=== PATIENT | female | born 1985 | race Hispanic/Latino ===

== ENCOUNTER 2018-08-11 18:15 | Emergency (ER) | payer OTHER ==
[~2018-08-11] VITALS: Ht 160 cm; Wt 73.0 kg
[2018-08-11] MEDS ORDERED: AMOXICILLIN500 MG PO (18:41)
[2018-08-11 18:50] VITALS: BP 134/66
== END 2018-08-11 18:58 | disposition home or self-care (01) | DRG 153 ==
LOC: ED 18:15
DX: H66.93 Otitis media, unspecified, bilateral (principal); J02.9 Acute pharyngitis, unspecified

== ENCOUNTER 2019-03-09 12:13 | Emergency (ER) | payer BC ==
[~2019-03-09] VITALS: Ht 160 cm; Wt 72.7 kg
[~2019-03-09 12:13] MED LIST: AMOXICILLIN500 MG PO
[2019-03-09 13:14] LABS: URINE BILIRUBIN - DIPSTICK NEGATIVE (NEGATIVE); URINE BLOOD DIPSTICK LARGE (NEGATIVE); URINE COLOR YELLOW; URINE GLUCOSE - DIPSTICK NEGATIVE (NEGATIVE); URINE KETONE NEGATIVE (NEGATIVE); URINE NITRITE - DIPSTICK NEGATIVE (Negative); URINE PROTEIN - DIPSTICK 30 mg/dL (NEG-TRACE); URINE SPECIFIC GRAVITY 1.025; URINE UROBILINOGEN - DIPSTICK 0.2 E.U./dL (0.2)
[2019-03-09 13:18] LABS: URINE LEUK ESTERASE MODERATE (NEGATIVE)
[2019-03-09 13:20] LABS: URINE BACTERIA FEW hpf; URINE RBC TNTC RBC/hpf (0-5); URINE SQUAMOUS EPITHELIAL CELL FEW EPI/hpf (0-FEW)
[2019-03-09] MEDS ORDERED: KEFLEX500 M1 PO (14:00)
[2019-03-09] MEDS ORDERED: PYRIDIUM200 MG PO (14:00)
[2019-03-09 14:14] VITALS: BP 112/80
== END 2019-03-09 14:14 | disposition home or self-care (01) | DRG 690 ==
LOC: ED 12:13
PROVIDERS: Emergency Medicine
DX: N39.0 Urinary tract infection, site not specified (principal)